=== PATIENT | male | born 1950 | race Caucasian/White ===

== ENCOUNTER 2018-07-18 18:04 | Emergency (ER) | payer MEDICARE, SELFPAY ==
[2018-07-18 18:06] VITALS: BP 170/82; PULSE 73; RESP 20; TEMP 36.4; O2SAT 100
--- NOTE | 2018-07-18 19:28 | ED_ITS ---
HPI - Skin/Abscess/Foreign Bdy General Chief complaint: Skin/Abscess/Foreign Body Stated complaint: THINKS HE HAS SHINGLES Time Seen by Provider: 07/18/18 19:19 Source: patient Mode of arrival: ambulatory Limitations: no limitations History of Present Illness HPI narrative: This a 68-year-old male comes to the emergency department with complaint of shingles over the right side of his scalp and face. Patient states he has had shingles before but on his back. Patient states it started about 7 days ago he noticed pain he stated about 4 5 days ago he started having a rash. It is painful he has not really been taking much of anything for the pain. He does not have an eye on his right side so he has not had any ocular issues. I has had some pain with his ear. Patient has had felt chilled today but no documented fevers. No chest pain, no shortness of breath. No nausea or vomiting no GI symptoms. Patient is currently on clindamycin for dental work and also has recently had an excision on his right thigh for a precancerous lesion. He states that he is waiting for the stitches to come out. Patient has a history of kidney transplant so he states that he was concerned about what medication dosages he should be on for shingles. He is seen at [facility] for this. Related Data Home Medications Medication Instructions Recorded Confirmed atorvastatin [Lipitor] 20 mg PO HS #0 03/08/12 amlodipine [Norvasc] 10 mg PO QDAY #0 05/21/12 warfarin [Coumadin] 5 mg PO QDAY #0 05/21/12 [mykilphedic] #0 06/30/17 [tacrolamus] #0 06/30/17 [vitamin D] #0 06/30/17 Previous Rx's Medication Instructions Recorded valacyclovir [Valtrex] 1,000 mg PO BID #14 tab 07/18/18 Allergies Allergy/AdvReac Type Severity Reaction Status Date / Time Penicillins [PENICILLINS] Allergy Unknown WENT INTO Unverified 12/20/17 12:21 A COMA Review of Systems Review of Systems All systems reviewed & are unremarkable except as noted in HPI and below Constitutional Reports chills, Denies fever(s), Reports headache(s) and Denies malaise Eyes 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) ENT Ears, Nose, Mouth, and Throat: Reports headache(s) and Reports other (rash on forward) Cardiovascular Denies chest pain and Denies dyspnea Respiratory Denies cough and Denies dyspnea Gastrointestinal Gastrointestinal: Denies abdominal pain, Denies change in bowel habits, Denies diarrhea, Denies nausea and Denies vomiting Musculoskeletal Reports other (healing incision on leg) Integumentary/Breasts Reports rash Neurologic Reports headache(s) [facility] Medical History Obstructive sleep apnea of adult (Chronic) Excessive daytime sleepiness (Chronic) Primary insomnia (Chronic) Surgical History Hx of CABG (Acute) Renal transplant recipient (Acute) Social History Smoking Status: Never smoker Exam Narrative Exam Narrative: GEN: well nourished, well appearing elderly male, alert and oriented x 3, patient appears to be in mild distress. HEENT: Atraumatic, pupils are equal round reactive to light, extraocular movements are intact on left, patient is missing an eye on the right, nares are clear, TMs are clear with no fluid, there is no conjunctival pallor. Throat is clear without any exudates, erythema, tonsillar enlargement or uvular deviation , patient has erythematous rash with vesicles that appear scabbed and mostly dried running from the right posterior scalp parietal and to the right forehead. There is no involvement of maxillary region or nose. HEART: Regular rate and rhythm without murmur, clicks, rubs. LUNGS:Lungs clear to auscultation, no wheezes, rales, crackles, chest moves symmetrically ABD:bowel sounds normal, soft, non-tender, no guarding, rebound, rigidity, no masses noted, no hepatosplenomegaly MSCL: Non-tender, no muscle atrophy, muscles strength 5/5 upper and lower extremities, full range of motion, normal gait NEURO:CN 2-12 intact, sensation normal Initial Vital Signs Initial Vital Signs: Vital Signs Temperature 97.6 F 07/18/18 18:06 Pulse Rate 73 07/18/18 18:06 Respiratory Rate 20 07/18/18 18:06 Blood Pressure 170/82 H 07/18/18 18:06 Pulse Oximetry 100 07/18/18 18:06 Course Orders Ordered: ED Orders 07/18/18 19:38 Basic Metabolic Panel Stat Complete Blood Count AUTO DIFF Stat Discontinued Medications Acetaminophen (Tylenol) 975 mg PO NOW ONE Stop: 07/18/18 19:29 Last Admin: 07/18/18 19:34 Dose: 975 mg Vital Signs - 8 hr 07/18/18 18:06 07/18/18 20:17 Temperature 97.6 F 98.2 F Pulse Rate 73 62 Respiratory Rate 20 15 Blood Pressure 170/82 H 172/72 H Pulse Oximetry 100 98 MDM - Skin/Abscess/Foreign Bdy Lab Data Result diagrams: 07/18/18 19:38 07/18/18 19:38 Lab Results 07/18/18 07/18/18 Range/Units 19:38 19:38 WBC 6.8 (4.5-11.0) X10^3/uL RBC 5.00 (4.5-5.9) X10^6/uL Hgb 14.9 (13.5-17.5) g/dL Hct 44.6 (41-53) % MCV 89.2 (80-100) fL MCH 29.8 (26-34) PG MCHC 33.4 (30-36) % RDW 14.3 (11.6-14.8) % Plt Count 146 L (150-400) X10^3/uL Neut % (Auto) 80.0 H (50-75) % Lymph % (Auto) 9.0 L (25-40) % [place] % (Auto) 9.6 (3-14) % Eos % (Auto) 0.9 L (2-4) % Baso % (Auto) 0.5 (0-2) % Neut # (Auto) 5500 (6929-1957) /uL Sodium 142 (137-145) mmol/L Potassium 4.1 (3.4-5.1) mmol/L Chloride 107 (98-107) mmol/L Carbon Dioxide 23 (22-32) mmol/L BUN 28 H (9-20) mg/dL Creatinine 1.90 H (0.66-1.25) mg/dL Estimated GFR 35.6 L (>60) mL/min BUN/Creatinine Ratio 14.7 (6-22) Glucose 117 H (80-110) mg/dL Calcium 10.2 (8.4-10.2) mg/dL MDM Narrative Medical decision making narrative: Discussed with patient will likely start him on acyclovir but he does not remember what dosage she was given. An attempt to check a lipid sure there is nothing clear other than stated active insert. Will contact Merissa cotter and discuss appropriate medication dosage. In the meantime he has not had his kidney function checked since March so will check this today as well. Spoke with Dr. Odin Anthony, if GFR is 30-49 plan for Valtrex 1000mg Q 12 x 1 week, if major change in renal function asks that we call back. Discharge Plan Departure Patient Disposition: Home Clinical Impression: Shingles Discharge Date/Time: 07/18/18 20:18 Interventions: ED Discharge Assessment Last Done: 07/18/18 20:17 Instructions: [place] Activity Restrictions/Additional Instructions: Follow up your primary care physician in the next 3-5 days for recheck. Take valtrex/valacyclovir as prescribed 1000mg every 12 hours x 7 days. You may take tylenol as needed for pain or [place], this medication can make you sleepy do not drive, perform hazards activities or make any major decisions while taking it. Prescriptions: New valacyclovir [Valtrex] 1 gram tablet 1,000 mg PO BID Qty: 14 RF: 0 No Action atorvastatin [Lipitor] 20 MG tablet 20 mg PO HS Qty: 0 RF: 0 amlodipine [Norvasc] 5 MG tablet 10 mg PO QDAY Qty: 0 RF: 0 warfarin [Coumadin] 5 MG tablet 5 mg PO QDAY Qty: 0 RF: 0 [mykilphedic] Qty: 0 RF: 0 [tacrolamus] Qty: 0 RF: 0 [vitamin D] Qty: 0 RF: 0
[2018-07-18] MEDS: ACETAMINOPHEN 325 MG TABLET 975 MG PO (19:34)
[2018-07-18 19:44] LABS: Add Manual Diff / Slide Review NO; Basophils Percent Auto 0.5 % (0-2); Eosinophils Percent Auto 0.9 % (2-4); Hematocrit 44.6 % (41-53); Hemoglobin 14.9 g/dL (13.5-17.5); Mean Corpuscular HGB Conc 33.4 % (30-36); Mean Corpuscular Hemoglobin 29.8 PG (26-34); Mean Corpuscular Volume 89.2 fL (80-100); Monocytes Percent Auto 9.6 % (3-14); Neutrophils Absolute Auto 5500 /uL (3000-5900); Platelet Count 146 X10^3/uL (150-400); Red Cell Distribution Width 14.3 % (11.6-14.8); White Blood Cell Count 6.8 X10^3/uL (4.5-11.0)
[2018-07-18 19:56] LABS: BUN Creatinine Ratio 14.7 (6-22); Blood Urea Nitrogen 28 mg/dL (9-20); Calcium 10.2 mg/dL (8.4-10.2); Carbon Dioxide 23 mmol/L (22-32); Chloride 107 mmol/L (98-107); Estimated Glomerular Filt Rate 35.6 mL/min (>60); Glucose 117 mg/dL (80-110); HEMOLYSIS < 15 (0-50); Potassium 4.1 mmol/L (3.4-5.1); Sodium 142 mmol/L (137-145)
[2018-07-18 20:17] VITALS: BP 172/72; PULSE 62; RESP 15; TEMP 36.8; O2SAT 98
--- NOTE | 2018-07-18 20:18 | PC.NURSE ---
the small skin openings are dried, red and flaky, no drainage noted.
== END 2018-07-18 20:18 | disposition home or self-care (01) ==
PROVIDERS: Emergency Provider Emergency Medicine
DX: B02.9 Zoster without complications (principal)
CPT/HCPCS: 36415; 80048; 85025; 99282; 99283

== ENCOUNTER 2019-05-26 19:04 | Emergency (ER) | payer MEDICARE, SELFPAY ==
--- NOTE | 2019-05-26 19:17 | DI.RAD.S_ITS ---
PROCEDURE: XR CHEST 1V INDICATIONS: chest pain TECHNIQUE: One view of the chest was acquired. COMPARISON: [facility], , CHEST 1VW (PORTABLE), 02/02/2012, 14:16. [facility], CR, CHEST 1 VIEW, 03/08/2012, 18:29. [facility], , CHEST 1 VIEW, 03/22/2012, 16:55. FINDINGS: Surgical changes and devices: Post CABG changes are seen. Lungs and pleura: Lung volumes are low. There is a crowded appearance of the lung markings. Likely atelectasis is seen at the lung bases. No pleural effusions or pneumothorax. Mediastinum: Heart size is within normal limits. The aorta demonstrates prominence and tortuosity. Bones and chest wall: No suspicious bony lesions. Overlying soft tissues appear unremarkable. IMPRESSION: No significant portable chest abnormality is seen. Dictated by: Shree Vidal M.D. on 05/26/2019 at 20:28 Approved by: Shree Vidal M.D. on 05/26/2019 at 20:30
[2019-05-26 19:25] VITALS: BP 179/113; PULSE 113; RESP 20; O2SAT 100; BMI 31.2
--- NOTE | 2019-05-26 19:32 | ED_ITS ---
HPI - Chest Pain General Chief Complaint: Chest Pain Stated Complaint: Chest Pain Time Seen by Provider: 05/26/19 19:15 Source: patient Mode of arrival: ambulatory Limitations: no limitations History of Present Illness HPI narrative: 69-year-old male here for evaluation back pain and chest pain and dyspnea on exertion and decreased exercise tolerance. He states this been going on for the past 3 or 4 days and worsening over this period time. He does have a history of a kidney transplant back in 2014. States he did have a ?small heart attack ?back in 2003. Subsequently having a coronary artery bypass graft. He also has a bog-[id number] diabetic. Also has a history of atrial fibrillation and on Coumadin. He states that his symptoms are improved/resolved when he is sitting and get worse when he is up moving around. No fevers. No cough. Related Data Home Medications Medication Instructions Recorded Confirmed atorvastatin [Lipitor] 40 mg PO HS #0 03/08/12 05/26/19 benazepril 40 mg PO DAILY 05/26/19 05/26/19 cholecalciferol (vitamin D3) 1 unit PO DAILY 05/26/19 05/26/19 glimepiride 1 mg PO BID 05/26/19 05/26/19 mupirocin 1 applic TOPICAL DAILY 05/26/19 05/26/19 mycophenolate sodium 720 mg PO BID 05/26/19 05/26/19 nitroglycerin 0.4 mg SUBLINGUAL Q5-15M PRN 05/26/19 05/26/19 prednisone 5 mg PO DAILY 05/26/19 05/26/19 tacrolimus 0.5 mg PO BID 05/26/19 05/26/19 tacrolimus 1 mg PO Q12H 05/26/19 05/26/19 warfarin 05/26/19 Allergies Allergy/AdvReac Type Severity Reaction Status Date / Time Penicillins [PENICILLINS] Allergy Unknown WENT INTO Verified 05/26/19 19:25 A COMA Review of Systems Constitutional Constitutional: Denies fever(s) and Denies headache(s) ENT Ears, Nose, Mouth, and Throat: Denies headache(s) Cardiovascular Cardiovascular: Reports chest pain, Reports leg edema, Denies palpitations, Reports dyspnea and Reports dyspnea on exertion Respiratory Respiratory: Denies cough, Reports dyspnea, Reports dyspnea on exertion and Denies wheezing Gastrointestinal Gastrointestinal: Denies abdominal pain, Denies nausea and Denies vomiting Genitourinary Genitourinary: Denies dysuria Musculoskeletal Musculoskeletal: Reports back pain, Denies myalgias and Denies arthralgias Integumentary/Breasts Skin/Breast: Denies lesions and Denies rash Neurologic Neurologic: Denies behavioral changes and Denies headache(s) Psychiatric Psychiatric: Denies behavioral changes Endocrine Endocrine: Denies palpitations Hematologic/Lymphatic Hematologic/Lymphatic: Denies easy bleeding and Denies easy bruising Allergic/Immunologic Allergic/Immunologic: Denies wheezing COUNTS INCLUDE 234 BEDS AT THE [facility] Medical History Atrial fibrillation and flutter (Chronic) Excessive daytime sleepiness (Inactive ~2013) History of anemia of chronic renal failure (Resolved) History of kidney stones (Resolved) History of stroke (Inactive) Hyperlipidemia (Chronic) 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) Hypertension (Chronic) Obesity (Chronic) Obstructive sleep apnea of adult (Chronic ~2014) Primary insomnia (Inactive) Renal osteodystrophy (Resolved) Retinal detachment (Resolved) Type 2 diabetes mellitus (Chronic ~1995) Surgical History History of cholecystectomy (Resolved) Hx of CABG (Chronic ~2005) Renal transplant recipient (Acute) Social History marital status: unmarried,single details: lives in [place] household members: none lives independently: Yes (in a 55-and-over community) caregiver/support person: No housing: condominium education level: college Smoking Status: Never smoker alcohol intake: current substance use type: does not use Social History marital status: unmarried,single details: lives in [place] household members: none lives independently: Yes (in a 55-and-over community) caregiver/support person: No housing: condominium education level: college Smoking Status: Never smoker alcohol intake: current substance use type: does not use Exam Initial Vital Signs Initial Vital Signs: Vital Signs Pulse Rate 113 H 05/26/19 19:25 Respiratory Rate 20 05/26/19 19:25 Blood Pressure 179/113 H 05/26/19 19:25 Pulse Oximetry 100 05/26/19 19:25 Const General: cooperative, comfortable, well developed and well groomed Orientation: alert, awake and oriented x3 HENMT Head: normal to inspection and normocephalic Eyes Other: Missing left eye Resp Effort & Inspection: normal respiratory effort Auscultation: clear to auscultation bilaterally Cardio Rate: regular rate Rhythm: regular rhythm Pulses: radial pulses present GI Inspection: non-distended Palpation: soft and No firm Back/Spine/Pelvis Back: No CVA tenderness Skin Lesions: no lesions Rashes: no rashes Neuro General: alert and awake Cognition: normal cognition Speech: speech normal Extrem General: normal to inspection, capillary refill normal and edema (Right lower extremity) Psych Appearance: grossly normal and well kempt Scores GCS Lamoni coma scale eye opening: Spontaneous Lamoni coma scale verbal response: Orientated Lamoni coma scale motor response: Obey commands Lamoni coma scale total score: 15 HEART Score Heart Score history: Highly Suspicious Heart Score EKG: Non-Specific repolarization disturbance Heart Score Age: > or = 65 years old Heart Score risk factors: > 3 risk factors or hx of atherosclerotic disease Heart Score troponin: < or = to normal limit Heart Score Total: 7 Course Orders Ordered: ED Orders 05/26/19 19:17 XR chest 1V Stat 05/26/19 19:44 B Type Natriuretic Peptide Stat Complete Blood Count AUTO DIFF Stat Comprehensive Metabolic Panel Stat Lipase Stat Partial Thromboplastin Time Stat Prothrombin Time INR Stat Troponin I Stat Discontinued Medications Aspirin (Aspirin Chew) 324 mg PO NOW ONE Stop: 05/26/19 19:16 Last Admin: 05/26/19 19:53 Dose: 324 mg Documented by: JAYANT Vital Signs Vital signs: Vital Signs - 8 hr 05/26/19 19:25 05/26/19 20:56 05/26/19 21:20 Temperature 97.7 F Pulse Rate 113 H 59 L Respiratory Rate 20 20 Blood Pressure 179/113 H Blood Pressure [Right Arm] 140/66 Pulse Oximetry 100 99 MDM - Chest Pain Lab Data Result diagrams: 05/26/19 19:44 05/26/19 19:44 Labs: Lab Results 05/26/19 05/26/19 05/26/19 Range/Units 19:44 19:44 19:44 WBC 7.4 (4.5-11.0) X10^3/uL RBC 4.34 L (4.5-5.9) X10^6/uL Hgb 12.6 L (13.5-17.5) g/dL Hct 38.8 L (41-53) % MCV 89.4 (80-100) fL MCH 29.0 (26-34) PG MCHC 32.5 (30-36) % RDW 14.9 H (11.6-14.8) % Plt Count 126 L (150-400) X10^3/uL Neut % (Auto) 85.2 H (50-75) % Lymph % (Auto) 8.2 L (25-40) % [place] % (Auto) 6.0 (3-14) % Eos % (Auto) 0.3 L (2-4) % Baso % (Auto) 0.3 (0-2) % Neut # (Auto) 6300 (2583-6535) /uL Lymph # (Auto) 600 L (3173-5425) /uL [place] # (Auto) 400 (0-900) /uL Eos # (Auto) 0 (0-450) /uL Baso # (Auto) 0 (0-100) /uL PT 47.3 H (10.1-12.7) SECONDS INR 4.0 H (0.9-1.3) APTT 45 H (26.4-36.2) SECONDS Sodium 140 (137-145) mmol/L Potassium 4.4 (3.4-5.1) mmol/L Chloride 108 H (98-107) mmol/L Carbon Dioxide 20 L (22-32) mmol/L BUN 40 H (9-20) mg/dL Creatinine 2.20 H (0.66-1.25) mg/dL Estimated GFR 30.0 L (>60) mL/min BUN/Creatinine Ratio 18.2 (6-22) Glucose 169 H (80-110) mg/dL Calcium 9.9 (8.4-10.2) mg/dL Total Bilirubin 1.7 H (0.2-1.3) mg/dL AST 19 (17-59) IU/L ALT 24 (21-72) IU/L Alkaline Phosphatase 78 (38-126) U/L Troponin I (0.01-0.034) ng/mL B-Natriuretic Peptide 187 H (<100) Total Protein 6.8 (6.3-8.2) g/dL Albumin 4.0 (3.5-5.0) g/dL Globulin 2.8 (1.7-4.1) g/dL Albumin/Globulin Ratio 1.4 (1.0-2.8) Lipase (23-300) U/L 05/26/19 Range/Units 19:44 WBC (4.5-11.0) X10^3/uL RBC (4.5-5.9) X10^6/uL Hgb (13.5-17.5) g/dL Hct (41-53) % MCV (80-100) fL MCH (26-34) PG MCHC (30-36) % RDW (11.6-14.8) % Plt Count (150-400) X10^3/uL Neut % (Auto) (50-75) % Lymph % (Auto) (25-40) % [place] % (Auto) (3-14) % Eos % (Auto) (2-4) % Baso % (Auto) (0-2) % Neut # (Auto) (7886-7282) /uL Lymph # (Auto) (7907-0221) /uL [place] # (Auto) (0-900) /uL Eos # (Auto) (0-450) /uL Baso # (Auto) (0-100) /uL PT (10.1-12.7) SECONDS INR (0.9-1.3) APTT (26.4-36.2) SECONDS Sodium (137-145) mmol/L Potassium (3.4-5.1) mmol/L Chloride (98-107) mmol/L Carbon Dioxide (22-32) mmol/L BUN (9-20) mg/dL Creatinine (0.66-1.25) mg/dL Estimated GFR (>60) mL/min BUN/Creatinine Ratio (6-22) Glucose (80-110) mg/dL Calcium (8.4-10.2) mg/dL Total Bilirubin (0.2-1.3) mg/dL AST (17-59) IU/L ALT (21-72) IU/L Alkaline Phosphatase (38-126) U/L Troponin I 0.030 (0.01-0.034) ng/mL B-Natriuretic Peptide (<100) Total Protein (6.3-8.2) g/dL Albumin (3.5-5.0) g/dL Globulin (1.7-4.1) g/dL Albumin/Globulin Ratio (1.0-2.8) Lipase 100 (23-300) U/L Imaging Data Chest x-ray: Radiologist's impression: [place] [id number] [place] [id number] XRay Report Signed Patient: Aniket Alcantara BMR#: [id number] : 2Acct:[id number] Age/Sex: 69 / MDate of Service: 05/26/19 Loc: ED Accession Number: [id number] Procedure: XR chest 1V Ordering Provider: Finesse Rahman D.O. PROCEDURE: XR CHEST 1V INDICATIONS: chest pain TECHNIQUE: One view of the chest was acquired. COMPARISON: [facility], , CHEST 1VW (PORTABLE), 02/02/2012, 14:16. [facility], , CHEST 1 VIEW, 03/08/2012, 18:29. [facility], CR, CHEST 1 VIEW, 03/22/2012, 16:55. FINDINGS: Surgical changes and devices: Post CABG changes are seen. Lungs and pleura: Lung volumes are low. There is a crowded appearance of the lung markings. Likely atelectasis is seen at the lung bases. No pleural effusions or pneumothorax. Mediastinum: Heart size is within normal limits. The aorta demonstrates prominence and tortuosity. Bones and chest wall: No suspicious bony lesions. Overlying soft tissues appear unremarkable. IMPRESSION: No significant portable chest abnormality is seen. Dictated by: Shree Vidal M.D. on 05/26/2019 at 20:28 Approved by: Shree Vidal M.D. on 05/26/2019 at 20:30 ECG Data Attestation: I personally reviewed and interpreted this ECG as follows: Prior ECG tracings: not available for review Interpretation: Atrial fibrillation Ventricular rate is 75 Normal axis Normal QRS Normal QTC Nonspecific ST T wave changes MDM Narrative Medical decision making narrative: Patient has multiple medical problems to include diabetes and kidney transplant and known coronary artery disease. Also has a history of AFib. His INR is 4 today. His BNP is unremarkable. He does have swelling in his right lower extremity but he states this is not new. Given his history and physical exam and do have concern for cardiac disease. He was given an aspirin in the emergency department. I did discuss the case with Dr. kirkpatrick who is on-call for cardiology who recommended not starting heparin however if we had available giving him 1 mg of vitamin K for his elevated INR. We do not have this available at this facility. We also do not have his anti-rejection medications available. He has been asymptomatic since lying in the bed. I discussed the case with with [facility] who accepts the patient in transport. I discussed the transfer with the patient who expressed understanding and agreement. Patient is stable for transport. Discharge Plan Departure [facility] Clinical Impression: Supratherapeutic INR, Edema of lower extremity Chest pain Qualifiers: Chest pain type: unspecified Qualified Code(s): R07.9 - Chest pain, unspecified Atrial fibrillation Qualifiers: Atrial fibrillation type: unspecified Qualified Code(s): I48.91 - Unspecified atrial fibrillation Prescriptions: No Action atorvastatin [Lipitor] 20 MG tablet 40 mg PO HS Qty: 0 RF: 0 prednisone 5 mg Tablet 5 mg PO DAILY RF: 0 glimepiride 1 mg tablet 1 mg PO BID RF: 0 warfarin 5 mg tablet RF: 0 nitroglycerin 0.4 mg Tablet, Sublingual 0.4 mg SUBLINGUAL Q5-15M PRN (Reason: Adequate Ventilation) RF: 0 mupirocin 2 % ointment 1 applic TOPICAL DAILY RF: 0 benazepril 40 mg tablet 40 mg PO DAILY RF: 0 tacrolimus 1 mg Capsule 1 mg PO Q12H RF: 0 tacrolimus 0.5 mg Capsule 0.5 mg PO BID RF: 0 mycophenolate sodium 360 mg Tablet,Delayed Release (Dr/Ec) 720 mg PO BID RF: 0 cholecalciferol (vitamin D3) 1,000 unit/drop Drops 1 unit PO DAILY RF: 0
[2019-05-26] MEDS: ASPIRIN 81 MG CHEW TAB 324 MG PO (19:53)
[2019-05-26 19:54] LABS: Add Manual Diff / Slide Review NO; Basophils Absolute Auto 0 /uL (0-100); Basophils Percent Auto 0.3 % (0-2); Eosinophils Absolute Auto 0 /uL (0-450); Eosinophils Percent Auto 0.3 % (2-4); Hematocrit 38.8 % (41-53); Hemoglobin 12.6 g/dL (13.5-17.5); Lymphocytes Absolute Auto 600 /uL (1100-4500); Lymphocytes Percent Auto 8.2 % (25-40); Mean Corpuscular HGB Conc 32.5 % (30-36); Mean Corpuscular Volume 89.4 fL (80-100); Monocytes Absolute Auto 400 /uL (0-900); Neutrophils Absolute Auto 6300 /uL (1500-7000); Neutrophils Percent Auto 85.2 % (50-75); Platelet Count 126 X10^3/uL (150-400); Red Blood Cell Count 4.34 X10^6/uL (4.5-5.9); Red Cell Distribution Width 14.9 % (11.6-14.8); White Blood Cell Count 7.4 X10^3/uL (4.5-11.0)
[2019-05-26 20:03] LABS: Prothrombin Time 47.3 SECONDS (10.1-12.7)
[2019-05-26 20:05] LABS: HEMOLYSIS 21 (0-50); PTT Partial Thromboplastin Tim 45 SECONDS (26.4-36.2); Potassium 4.4 mmol/L (3.4-5.1)
[2019-05-26 20:06] LABS: Lipase 100 U/L (23-300)
[2019-05-26 20:08] LABS: Alanine Aminotransferase 24 IU/L (21-72); Albumin Globulin Ratio 1.4 (1.0-2.8); Alkaline Phosphatase 78 U/L (38-126); Aspartate Aminotransferase 19 IU/L (17-59); BUN Creatinine Ratio 18.2 (6-22); Bilirubin Total 1.7 mg/dL (0.2-1.3); Blood Urea Nitrogen 40 mg/dL (9-20); Calcium 9.9 mg/dL (8.4-10.2); Carbon Dioxide 20 mmol/L (22-32); Chloride 108 mmol/L (98-107); Globulin 2.8 g/dL (1.7-4.1); Glucose 169 mg/dL (80-110); Sodium 140 mmol/L (137-145); Total Protein 6.8 g/dL (6.3-8.2)
[2019-05-26 20:11] LABS: B Type Natriuretic Peptide 187 (<100)
[2019-05-26 20:56] VITALS: BP 140/66; PULSE 59; RESP 20; O2SAT 99
[2019-05-26 21:20] VITALS: TEMP 36.5
[2019-05-26 22:11] VITALS: BP 165/77; PULSE 50; RESP 20; O2SAT 100
== END 2019-05-26 22:32 | disposition short-term general hospital (02) ==
PROVIDERS: Emergency Provider Emergency Medicine
DX: R07.9 Chest pain, unspecified (principal); I48.91 Unspecified atrial fibrillation; R60.0 Localized edema; R79.1 Abnormal coagulation profile
CPT/HCPCS: 36591; 71045; 80053; 83690; 83880; 84484; 85025; 85610; 85730; 93005; 99283; 99285